=== PATIENT | male | born 1960 | race Caucasian/White ===

== ENCOUNTER 2018-08-24 21:08 | Emergency (ER) | payer SELFPAY ==
--- NOTE | 2018-08-24 21:34 | EDM.PDOC ---
ED HPI GENERAL MEDICAL PROBLEM - General Chief Complaint: General Stated Complaint: LOWER ABDOMINAL PAIN Time Seen by Provider: 08/24/18 21:24 - History of Present Illness INITIAL COMMENTS - FREE TEXT/NARRATIVE: 58-year-old male presents emergency room with a painful right inguinal hernia that is sticking out farther than it ever has. This hernia has been present for many years when the patient lives in [place] he tried to have it fixed several times but nobody would fix it so he 's been told. Today it has been getting worse and more painful however this is as big as he has ever seen it. He denies any nausea or vomiting has significant pain. 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 He is doing well staying off heroin however has not followed up for his atrial fibrillation Treatments SURFACE LOGGING SYSTEMS LOGGER: Reports: Other (see below) Other Treatments SURFACE LOGGING SYSTEMS LOGGER: none Lower Pelvic Pain Score (Numeric/FACES): 10 - Related Data Allergies Allergy/AdvReac Type Severity Reaction Status Date / Time No Known Allergies Allergy Verified 06/27/18 11:26 Home Meds: Home Meds . [No Known Home Meds] 08/24/18 [History] Past Medical History HEENT History: Reports: Impaired Vision Cardiovascular History: Reports: Afib, Hypertension 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 History: Reports: Other (See Below) Other 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 History: slow flow Musculoskeletal History: Reports: Back Pain, Chronic Other Musculoskeletal History: knots in back "feels like a broken rib" Psychiatric History: Reports: Addiction - Infectious Disease History Infectious Disease History: Reports: Hepatitis C - Past Surgical History Head Surgeries/Procedures: Reports: None HEENT Surgical History: Reports: Tonsillectomy Social & Family History - Family History Family Medical History: Noncontributory - Tobacco Use Smoking Status *Q: Current Every Day Smoker Years of Tobacco use: 30 Packs/Tins Daily: 0.2 - Caffeine Use Caffeine Use: Reports: Coffee - Recreational Drug Use Other Recreational Drug Type: last used heroin 2 months ago ED ROS GENERAL - Review of Systems Review Of Systems: See Below Constitutional: Reports: No Symptoms HEENT: Reports: No Symptoms Respiratory: Reports: No Symptoms Cardiovascular: Reports: No Symptoms GI/Abdominal: Reports: Abdominal Pain, Constipation, Diarrhea. Denies: Nausea, Vomiting : Reports: No Symptoms Neurological: Reports: No Symptoms Psychiatric: Reports: No Symptoms ED EXAM, GENERAL - Physical Exam Exam: See Below Exam Limited By: No Limitations General Appearance: Alert, No Apparent Distress Head: Atraumatic, Normocephalic Neck: Normal Inspection, Supple, Non-Tender, Full Range of Motion Respiratory/Chest: No Respiratory Distress, Lungs Clear, Normal Breath Sounds Cardiovascular: Regular Rate, Rhythm, No Edema, No Murmur GI/Abdominal: Normal Bowel Sounds, Soft, Other (Patient is a quite large right inguinal hernia this is larger than has seen at in the past gentle maneuvers try and reduce have not yet been successful. He has contents right down into the right scrotum.) Back Exam: Normal Inspection. No: CVA Tenderness (L), CVA Tenderness (R) Course - Vital Signs Last Recorded V/S: Last Vital Signs Temp 37.0 C 08/24/18 21:23 Pulse 88 08/24/18 21:23 Resp 20 08/24/18 21:23 BP 136/111 H 08/24/18 21:23 Pulse Ox 98 08/24/18 21:23 - Orders/Labs/Meds Orders: Active Orders 24 hr Category Date Time Status Abdomen 2V AP Flat Upright [CR] Stat Exams 08/24/18 21:43 Taken Abdomen Pelvis w Cont [CT] Stat Exams 08/24/18 22:55 Taken Lactated Ringers [Ringers, Lactated] 1,000 ml Med 08/24/18 21:45 Active IV ASDIRECTED Medication Orders Lactated Ringer's (Ringers, Lactated) 1,000 mls @ 150 mls/hr IV ASDIRECTED NATALY Last Admin: 08/24/18 22:08 Dose: 150 mls/hr Labs: Laboratory Tests 08/24/18 08/24/18 08/25/18 Range/Units 21:50 21:50 00:15 WBC 9.96 H (4.23-9.07) K/mm3 RBC 4.66 (4.63-6.08) M/mm3 Hgb 15.3 (13.7-17.5) gm/L Hct 42.8 (40.1-51.0) % MCV 91.8 (79.0-92.2) fl MCH 32.8 H (25.7-32.2) pg MCHC 35.7 H (32.2-35.5) g/dl RDW Std Deviation 45.8 H (35.1-43.9) fL Plt Count 163 (163-337) K/mm3 MPV 10.2 (9.4-12.3) fl Neutrophils % (Manual) 36 L (40-60) % Band Neutrophils % 0 (0-10) % Lymphocytes % (Manual) 58 H (20-40) % Atypical Lymphs % 0 % Monocytes % (Manual) 4 (2-10) % Eosinophils % (Manual) 0 L (0.8-7.0) % Basophils % (Manual) 2 H (0.2-1.2) Platelet Estimate Adequate RBC Morph Comment Normal Sodium 140 (136-145) mEq/L Potassium 3.9 (3.5-5.1) mEq/L Chloride 105 (98-107) mEq/L Carbon Dioxide 28 (21-32) mEq/L Anion Gap 10.9 (5-15) BUN 10 (7-18) mg/dL Creatinine 0.9 (0.7-1.3) mg/dL Est Cr Clr Drug Dosing 89.60 mL/min Estimated GFR (MDRD) > 60 (>60) mL/min BUN/Creatinine Ratio 11.1 L (14-18) Glucose 104 (74-106) mg/dL Calcium 8.7 (8.5-10.1) mg/dL Total Bilirubin 0.5 (0.2-1.0) mg/dL AST 41 H (15-37) U/L ALT 60 (16-63) U/L Alkaline Phosphatase 60 (46-116) U/L Total Protein 7.7 (6.4-8.2) g/dl Albumin 3.3 L (3.4-5.0) g/dl Globulin 4.4 gm/dL Albumin/Globulin Ratio 0.8 L (1-2) Lipase 177 (73-393) U/L Urine Color Yellow (Yellow) Urine Appearance Clear (Clear) Urine pH 5.5 (5.0-8.0) Ur Specific [place] > or = 1.030 (1.005-1.030) Urine Protein Negative (Negative) Urine Glucose (UA) Negative (Negative) Urine Ketones Trace H (Negative) Urine Occult Blood Negative (Negative) Urine Nitrite Negative (Negative) Urine Bilirubin Negative (Negative) Urine Urobilinogen 0.2 (0.2-1.0) Ur Leukocyte Esterase Negative (Negative) Urine RBC 0-5 (0-5) /hpf Urine WBC 0-5 (0-5) /hpf Ur Epithelial Cells 0-5 (0-5) /hpf Urine Bacteria Rare (FEW) /hpf Urine Mucus Moderate H (FEW) /hpf Meds: Medications Generic Name Dose Route Start Last Admin Trade Name Freq PRN Reason Stop Dose Admin Lactated Ringer's 1,000 mls @ 150 mls/hr 08/24/18 21:45 08/24/18 22:08 Ringers, Lactated IV 150 mls/hr ASDIRECTED NATALY Administration Discontinued Medications Generic Name Dose Route Start Last Admin Trade Name Freq PRN Reason Stop Dose Admin Diatrizoate Meglum/Diatrizoate Sod 120 ml 08/25/18 00:12 08/25/18 00:19 Gastrografin 37% PO 08/25/18 00:13 120 ml ONETIME ONE Administration Hydromorphone HCl 0.5 mg 08/24/18 21:39 08/24/18 21:48 Dilaudid IVPUSH 08/24/18 21:40 0.5 mg ONETIME ONE Administration Hydromorphone HCl 0.5 mg 08/24/18 22:52 08/24/18 23:04 Dilaudid IVPUSH 08/24/18 22:53 0.5 mg ONETIME ONE Administration Iopamidol 100 ml 08/25/18 00:12 08/25/18 00:19 Isovue-300 (61%) IVPUSH 08/25/18 00:13 100 ml ONETIME ONE Administration Iopamidol 25 ml 08/25/18 00:12 08/25/18 00:19 Isovue-300 (61%) IVPUSH 08/25/18 00:13 25 ml ONETIME ONE Administration - Re-Assessments/Exams Free Text/Narrative Re-Assessment/Exam: 08/25/18 02:06 Auditory evaluation is not overly concerning KUB and upright showed some not clearly diagnostic however had multiple loops of small bowel are slightly dilated including a fairly large loop of bowel that could well of been in the right scrotum went ahead and follow this up with a CT which shows a very large inguinal hernia containing a portion of the small bowel and colon as well as the appendix however there is no evidence of bowel obstruction. After the results of the CT I discussed the situation with the patient was feeling much better palpation of the hernias much smaller than it was. Discussed the patient' s case with Dr. Murphy who recommends outpatient treatment and will see him early this next week. I discussed this with the patient he agrees with this. Discussed pain management with the patient as he is a recovering heroin addict and he elects not to take anything for pain. Departure - Departure Time of Disposition: 02:08 Disposition: Home, Self-Care 01 Clinical Impression: Right inguinal hernia - Discharge Information Referrals: PCP,None [Primary Care Provider] - Ale Murphy MD [Physician] - Forms: ED Department Discharge Additional Instructions: Return to the emergency room with any questions problems worsening symptoms. Follow-up with general surgery at the [facility], , call first thing Saturday for an appointment. Clear liquid diet for the next 24 hours then slowly advance as tolerated - My Orders Last 24 Hours: My Active Orders 08/24/18 21:43 Abdomen 2V AP Flat Upright [CR] Stat 08/24/18 21:45 Lactated Ringers [Ringers, Lactated] 1,000 ml IV ASDIRECTED 08/24/18 22:55 Abdomen Pelvis w Cont [CT] Stat - Assessment/Plan Last 24 Hours: My Active Orders 08/24/18 21:43 Abdomen 2V AP Flat Upright [CR] Stat 08/24/18 21:45 Lactated Ringers [Ringers, Lactated] 1,000 ml IV ASDIRECTED 08/24/18 22:55 Abdomen Pelvis w Cont [CT] Stat
[2018-08-24] MEDS ORDERED: HYDROmorphone 1 MG/ML Syringe IVPUSH ONE ×2 (21:39→22:52)
[2018-08-24] MEDS ORDERED: Lactated Ringers 1,000 ML IV SCH (21:45)
[2018-08-25] MEDS ORDERED: Iopamidol 612 MG/ML 100 ML Bottle IVPUSH ONE (00:12)
[2018-08-25] MEDS ORDERED: Iopamidol 612 MG/ML 50 ML SDV IVPUSH ONE (00:12)
[2018-08-25] MEDS ORDERED: Diatrizoate Meglumine/Diatrizoate Sodium 37% 120 ML Bottle PO ONE (00:12)
--- NOTE | 2018-08-25 06:38 | CT ---
CT abdomen and pelvis Technique: Multiple axial sections were obtained from above the dome of the diaphragm inferiorly through the pubic symphysis. Intravenous contrast and oral contrast has been given. Findings: Right inguinal hernia is seen which contains the cecum as well as the terminal ileum and appendix. Contrast is seen entering the hernia from the ileum as well as contrast seen more distally within the colon. No complete bowel obstruction is seen at this time. Visualized lung bases show nothing acute. Liver contains no focal abnormality. Contrast is identified within the distal esophagus compatible with gastroesophageal reflux. Adrenal glands show no nodule. Pancreas is within normal limits. Gallbladder contains no calcified gallstones. Kidneys show symmetric contrast enhancement without hydronephrosis or mass. Aorta shows no aneurysm. No retroperitoneal adenopathy or mesenteric abnormalities are seen. No pelvic mass or adenopathy is seen. Delayed images show contrast within the distal ureters and bladder. Bone window settings were reviewed which show degenerative change within the spine most severe at L3-L4 with disc space narrowing, vacuum phenomena and endplate sclerosis. Impression: 1. Large right inguinal hernia containing the cecum as well as terminal ileum and appendix. Contrast is seen within the terminal ileum and cecum as well as more distal contrast within the colon. Hernia does not cause a complete small bowel obstruction but could cause a low-grade partial obstruction. 3. Other incidental findings as noted above. Diagnostic code #3 I agree with preliminary report from [facility], finalized on 08/25/18, 2:46 AM Central Time
--- NOTE | 2018-08-25 06:38 | CR ---
Abdomen: Supine and upright views of the abdomen were obtained. Comparison: Prior abdominal x-ray of 06/26/18. Scoliosis is noted within the spine. Right inguinal hernia is seen containing a loop of bowel most likely colon. This may be causing some obstruction as there is mildly dilated small bowel gas being seen within the right lower abdomen. Nodule noted within the left lung base most likely representing nipple density. No free air is seen. Impression: 1. Bowel within right inguinal hernia most likely colon. This may be causing some obstruction as there is mildly prominent small bowel being seen within the right lower abdomen. 2. Other incidental findings. Diagnostic code #5
== END 2018-08-25 02:16 | disposition home or self-care (01) ==
LOC: JD.ED 21:08
DX: K40.90 Unilateral inguinal hernia, without obstruction or gangrene, not specified as recurrent (principal); I10 Essential (primary) hypertension; I48.91 Unspecified atrial fibrillation; F17.210 Nicotine dependence, cigarettes, uncomplicated; Z98.890 Other specified postprocedural states
CPT/HCPCS: 36415; 74019; 74177; 80053; 81001; 83690; 85007; 85027; 96361; 96374; 96376; 99284; J1170; J7120; Q9963; Q9967

== ENCOUNTER 2018-08-30 13:05 | Emergency (ER) | payer MEDICAID ==
[2018-08-30] MEDS ORDERED: LORazepam 2 MG/ML SDV IVPUSH ONE (13:41)
[2018-08-30] MEDS ORDERED: Sodium Chloride 0.9% 10 ML Syringe FLUSH PRN (13:41)
[2018-08-30] MEDS ORDERED: HYDROmorphone 1 MG/ML Syringe IVPUSH ONE (13:41)
[2018-08-30] MEDS ORDERED: Ondansetron 4 MG/2 ML SDV IVPUSH ONE (13:43)
--- NOTE | 2018-08-30 14:30 | EDM.PDOC ---
ED HPI GENERAL MEDICAL PROBLEM - General Chief Complaint: Gastrointestinal Problem Stated Complaint: HERNIA Time Seen by Provider: 08/30/18 13:29 Source of Information: Reports: Patient, RN Notes Reviewed - History of Present Illness INITIAL COMMENTS - FREE TEXT/NARRATIVE: 58-year-old male comes in with right inguinal hernia, severe abdominal pain, nausea vomiting. Does have history of chronic right inguinal hernia that he is sad for at least several years. He states the swelling pain in the right scrotum became much worse just an hour or 2 ago. He had a similar episode like this 6 days ago. Please refer to that record for details. With pain medicine and time symptoms did get better and he states he has done okay this past week up until just an hour to ago. Resents with nausea and vomiting as well. He states he has pain throughout his abdomen as well. groin Pain Score (Numeric/FACES): 10 - Related Data Allergies Allergy/AdvReac Type Severity Reaction Status Date / Time No Known Allergies Allergy Verified 08/30/18 13:23 Home Meds: Home Meds . [No Known Home Meds] 08/24/18 [History] Past Medical History HEENT History: Reports: Impaired Vision Cardiovascular History: Reports: Afib, Hypertension 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 History: Reports: Other (See Below) Other 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 History: slow flow Musculoskeletal History: Reports: Back Pain, Chronic Other Musculoskeletal History: knots in back "feels like a broken rib" Psychiatric History: Reports: Addiction Other Psychiatric History: hx heroin use/abuse and other substances - Infectious Disease History Infectious Disease History: Reports: Hepatitis C - Past Surgical History Head Surgeries/Procedures: Reports: None HEENT Surgical History: Reports: Tonsillectomy Social & Family History - Family History Family Medical History: Noncontributory - Tobacco Use Smoking Status *Q: Current Every Day Smoker Years of Tobacco use: 40 Packs/Tins Daily: 0.3 - Caffeine Use Caffeine Use: Reports: Coffee - Recreational Drug Use Recreational Drug Use: Yes Drug Use in Last 12 Months: Yes Other Recreational Drug Type: hx of heroin use ED ROS GENERAL - Review of Systems Review Of Systems: See Below Constitutional: Denies: Fever, Chills HEENT: Reports: No Symptoms Respiratory: Denies: Shortness of Breath Cardiovascular: Denies: Chest Pain GI/Abdominal: Reports: Abdominal Pain, Nausea, Vomiting : Reports: Other (Severe swelling right scrotum) Neurological: Reports: No Symptoms ED EXAM, GI/ABD - Physical Exam Exam: See Below General Appearance: Alert, Severe Distress Eyes: Bilateral: Normal Appearance Throat/Mouth: Normal Inspection Head: Atraumatic Respiratory/Chest: No Respiratory Distress, Lungs Clear, Normal Breath Sounds Cardiovascular: Regular Rate, Rhythm GI/Abdominal Exam: Tender (Moderate diffuse tenderness somewhat more on the right) (Male) Exam: Scrotal Swelling (very large R groin and R scrotal mass, tenderness) Extremities: Normal Inspection, Normal Range of Motion Neurological: Alert, No Motor/Sensory Deficits Skin Exam: Warm, Dry, Normal Color Course - Vital Signs Last Recorded V/S: Last Vital Signs Temp 97.1 F 08/30/18 13:12 Pulse 65 08/30/18 13:12 Resp 18 08/30/18 13:12 BP 154/108 H 08/30/18 13:12 Pulse Ox 100 08/30/18 13:12 - Orders/Labs/Meds Orders: Active Orders 24 hr Category Date Time Status Peripheral IV Care [RC] . DIRECTED Care 08/30/18 13:41 Active Abdomen 2V AP Flat Upright [CR] Stat Exams 08/30/18 14:18 Taken Peripheral IV Insertion Adult [OM.PC] Stat Oth 08/30/18 13:40 Ordered Labs: Laboratory Tests 08/30/18 08/30/18 08/30/18 Range/Units 13:50 13:50 13:50 WBC 18.44 H (4.23-9.07) K/mm3 RBC 5.34 (4.63-6.08) M/mm3 Hgb 17.2 (13.7-17.5) gm/L Hct 48.5 (40.1-51.0) % MCV 90.8 (79.0-92.2) fl MCH 32.2 (25.7-32.2) pg MCHC 35.5 (32.2-35.5) g/dl RDW Std Deviation 46.9 H (35.1-43.9) fL Plt Count 206 (163-337) K/mm3 MPV 10.0 (9.4-12.3) fl Neutrophils % (Manual) 47 (40-60) % Band Neutrophils % 0 (0-10) % Lymphocytes % (Manual) 44 H (20-40) % Atypical Lymphs % 0 % Monocytes % (Manual) 9 (2-10) % Eosinophils % (Manual) 0 L (0.8-7.0) % Basophils % (Manual) 0 L (0.2-1.2) Platelet Estimate Adequate Plt Morphology Comment Normal RBC Morph Comment Normal Sodium 136 (136-145) mEq/L Potassium 4.3 (3.5-5.1) mEq/L Chloride 100 (98-107) mEq/L Carbon Dioxide 25 (21-32) mEq/L Anion Gap 15.3 H (5-15) BUN 12 (7-18) mg/dL Creatinine 1.0 (0.7-1.3) mg/dL Est Cr Clr Drug Dosing 83.16 mL/min Estimated GFR (MDRD) > 60 (>60) mL/min BUN/Creatinine Ratio 12.0 L (14-18) Glucose 159 H (74-106) mg/dL Calcium 9.2 (8.5-10.1) mg/dL Total Bilirubin 1.0 (0.2-1.0) mg/dL AST 39 H (15-37) U/L ALT 74 H (16-63) U/L Alkaline Phosphatase 69 (46-116) U/L C-Reactive Protein < 0.2 (<1.0) mg/dL Total Protein 8.6 H (6.4-8.2) g/dl Albumin 3.8 (3.4-5.0) g/dl Globulin 4.8 gm/dL Albumin/Globulin Ratio 0.8 L (1-2) Meds: Medications Discontinued Medications Generic Name Dose Route Start Last Admin Trade Name [place] PRN Reason Stop Dose Admin Hydromorphone HCl 1 mg 08/30/18 13:41 08/30/18 13:53 Dilaudid IVPUSH 08/30/18 13:42 1 mg ONETIME ONE Administration Lorazepam 0.5 mg 08/30/18 13:41 08/30/18 13:54 Ativan IVPUSH 08/30/18 13:42 0.5 mg ONETIME ONE Administration Ondansetron HCl 4 mg 08/30/18 13:43 08/30/18 13:53 Zofran IVPUSH 08/30/18 13:44 4 mg ONETIME ONE Administration Sodium Chloride 10 ml 08/30/18 13:41 08/30/18 13:54 Saline Flush FLUSH 10 ml ASDIRECTED PRN Administration Keep Vein Open - Re-Assessments/Exams Free Text/Narrative Re-Assessment/Exam: 08/30/18 16:24 Patient was medicated initially with Dilaudid 1 mg IV, Ativan 0.5 mg IV. Helped his pain tremendously. Gentle pressure was applied to the area of mass in herniation of the right scrotum for considerable time which did help partially reduce the mass and swelling of the scrotum did not take it out completely. We then did do a flat and upright abdomen which did show a couple of small air- fluid levels right abdomen somewhat similar to x-rays obtained 6 days ago. He then did go back applied further pressure in herniation didn't completely reduce it down at least for now. I did have our nurse then apply some gauze to the area of his hernia and an Silverio wrap to at least get some pressure over that area which may help that from recurring over the next few days. He does have appointment to see Dr. Ramsey, General Surgeon, [facility] 2 days from now. Departure - Departure Time of Disposition: 15:50 Disposition: Home, Self-Care 01 Condition: Fair Clinical Impression: Inguinal hernia Qualifiers: Obstruction and gangrene presence: without obstruction or gangrene Laterality: unilateral Recurrence: not specified as recurrent Qualified Code(s): K40.90 - Unilateral inguinal hernia, without obstruction or gangrene, not specified as recurrent - Discharge Information Instructions: Inguinal Hernia, Adult, [id number] Referrals: PCP,None [Primary Care Provider] - Forms: ED Department Discharge Additional Instructions: Start taking stool softener as planned, drink plenty of water to maintain hydration, high-fiber diet, Silverio wrap with gauze to apply pressure to area of hernia to try help keep that from reoccurring. No lifting. See Dr. Ramsey Saturday at [facility] as planned, return to ED if symptoms worsening in any way. - My Orders Last 24 Hours: My Active Orders 08/30/18 13:40 Peripheral IV Insertion Adult [OM.PC] Stat 08/30/18 13:41 Peripheral IV Care [RC] . DIRECTED 08/30/18 14:18 Abdomen 2V AP Flat Upright [CR] Stat - Assessment/Plan Last 24 Hours: My Active Orders 08/30/18 13:40 Peripheral IV Insertion Adult [OM.PC] Stat 08/30/18 13:41 Peripheral IV Care [RC] . DIRECTED 08/30/18 14:18 Abdomen 2V AP Flat Upright [CR] Stat
--- NOTE | 2018-08-31 17:00 | CR ---
Abdomen: Supine and upright views of the abdomen were obtained. Comparison: Prior CT abdomen and pelvis exam of 08/25/18. Slightly dilated air filled small bowel loops are seen containing air-fluid levels. Findings are compatible with mild small bowel obstruction. No free air is seen. Scoliosis and degenerative change are noted within the spine. Minimal vascular calcification is seen. Impression: 1. Findings suspicious for mild small bowel obstruction. 2. Other incidental findings. Diagnostic code #3
== END 2018-08-30 15:58 | disposition home or self-care (01) ==
LOC: JD.ED 13:05
DX: K40.90 Unilateral inguinal hernia, without obstruction or gangrene, not specified as recurrent (principal); I10 Essential (primary) hypertension; F17.210 Nicotine dependence, cigarettes, uncomplicated
CPT/HCPCS: 36415; 74019; 80053; 85007; 85027; 86140; 96374; 96375; 99284; J1170; J2060; J2405

== ENCOUNTER 2018-12-17 07:32 | Day surgery (SDC) | payer MEDICAID ==
[~2018-12-17 07:32] MED LIST: Lactated Ringers 1,000 ML IV SCH; Lidocaine 1%/Sod Bicarbonate in NS 8.4% 1 ML Syringe IDERM PRN; Sodium Chloride 0.9% 10 ML Syringe FLUSH PRN
[2018-12-17] MEDS ORDERED: Lidocaine 1% 4 ML ONE (07:45)
[2018-12-17] MEDS ORDERED: Ondansetron 4 MG/2 ML SDV ONE (07:45)
[2018-12-17] MEDS ORDERED: Rocuronium 50 MG/5 ML Vial ONE (07:45)
[2018-12-17] MEDS ORDERED: fentaNYL 250 MCG/5 ML SDV ONE (07:46)
[2018-12-17] MEDS ORDERED: Midazolam 1 MG/ML 2 ML SDV ONE (07:46)
[2018-12-17] MEDS ORDERED: Propofol 200 MG/20 ML SDV ONE (07:46)
[2018-12-17] MEDS ORDERED: ceFAZolin 1 GM Vial ONE (07:51)
--- NOTE | 2018-12-17 08:00 | PCM.PREANE ---
Preanesthetic Assessment - Procedure Proposed Procedure: open inguinal hernia repair with mesh - Anesthesia/Transfusion/Family Hx Anesthesia History: Prior Anesthesia Without Reaction Family History of Anesthesia Reaction: No Transfusion History: No Prior Transfusion(s) - Review of Systems General: No Symptoms Pulmonary: Cough (getting over a cold) Cardiovascular: No Symptoms Gastrointestinal: Abdominal Pain (because of hernia) Neurological: No Symptoms Other: Reports: Liver Problems (hep c) - Physical Assessment NPO Status Date: 12/16/18 NPO Status Time: 23:00 Pulse: 88 O2 Sat by Pulse Oximetry: 96 Respiratory Rate: 18 Blood Pressure: 138/87 Temperature: 98.1 F Height: 5 ft 6 in Weight: 74.8 kg ASA Class: 2 Mental Status: Alert & Oriented x3 Airway Class: Mallampati = 1 Dentition: Reports: Missing Tooth/Teeth (only has 1 tooth bottom) Thyro-Mental Finger Breadths: 3 Mouth Opening Finger Breadths: 3 ROM/Head Extension: Full Lungs: Clear to Auscultation, Normal Respiratory Effort Cardiovascular: Regular Rate, Regular Rhythm - Lab Values: Laboratory Last Values MRSA (PCR) Negative 12/12/18 09:48 - Allergies Allergies/Adverse Reactions: Allergies Allergy/AdvReac Type Severity Reaction Status Date / Time No Known Allergies Allergy Verified 12/16/18 12:16 - Blood Blood Available: No - Acknowledgements Anesthesia Type Planned: General Anesthesia Pt an Appropriate Candidate for the Planned Anesthesia: Yes Alternatives and Risks of Anesthesia Discussed w Pt/Guardian: Yes Pt/Guardian Understands and Agrees with Anesthesia Plan: Yes PreAnesthesia Questionnaire HEENT History: Reports: None Cardiovascular History: Reports: Afib, Hypertension Respiratory History: Reports: None Gastrointestinal History: Reports: Other (See Below) Other Gastrointestinal History: Inguinal hernia 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 History: Reports: None Other 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 History: slow flow Musculoskeletal History: Reports: None Other Musculoskeletal History: knots in back "feels like a broken rib" Neurological History: Reports: None Psychiatric History: Reports: Addiction Other Psychiatric History: H&P states substance abuse but patient denies- last used marijuana 4 months ago Endocrine/Metabolic History: Reports: None Hematologic History: Reports: None Immunologic History: Other Immunologic History: H&P states Hepatitis C, but patient states he has never been tested for it Oncologic (Cancer) History: Reports: None Dermatologic History: Reports: None - Infectious Disease History Infectious Disease History: Reports: Hepatitis C Other Infectious Disease History: H&P states Hepatitis C, however, patient states that he has never been tested for it. - Past Surgical History Head Surgeries/Procedures: Reports: None HEENT Surgical History: Reports: Tonsillectomy Cardiovascular Surgical History: Reports: None GI Surgical History: Reports: None Female Surgical History: Male Surgical History: Reports: None Endocrine Surgical History: Reports: None Neurological Surgical History: Reports: None Musculoskeletal Surgical History: Reports: None Oncologic Surgical History: Reports: None Dermatological Surgical History: Reports: None - SUBSTANCE USE Smoking Status *Q: Current Every Day Smoker Tobacco Use Within Last Twelve Months: Cigarettes Second Hand Smoke Exposure: Yes Days Per Week of Alcohol Use: 2 Number of Drinks Per Day: 2 Total Drinks Per Week: 4 Recreational Drug Use History: Yes Recreational Drug Type: Reports: Heroin, Marijuana/Hashish, Methamphetamine - HOME MEDS Home Medications: Home Meds Aspirin [Halfprin] 81 mg PO DAILY 12/16/18 [History] Multivitamin/Iron/Folic Acid [Centrum Complete Multivit] 1 tab PO DAILY [History] - CURRENT (IN HOUSE) MEDS Current Meds: Current Medications Lactated Ringer's (Ringers, Lactated) 1,000 mls @ 125 mls/hr IV ASDIRECTED NATALY Stop: 12/17/18 23:00 Lidocaine/Sodium Bicarbonate (Buffered Lidocaine 1% In Ns 8.4%) 0.25 ml IDERM ONETIME PRN PRN Reason: Prior to IV Start Stop: 12/17/18 18:00 Sodium Chloride (Saline Flush) 10 ml FLUSH ASDIRECTED PRN PRN Reason: Keep Vein Open Stop: 12/17/18 18:00 Discontinued Medications Cefazolin Sodium (Ancef) Confirm Administered Dose 2 gm .ROUTE .STK-MED ONE Stop: 12/17/18 07:52 Fentanyl (Sublimaze) Confirm Administered Dose 250 mcg .ROUTE .STK-MED ONE Stop: 12/17/18 07:47 Lidocaine HCl (Xylocaine-Mpf 1%) Confirm Administered Dose 4 mls @ as directed .ROUTE .STK-MED ONE Stop: 12/17/18 07:46 Midazolam HCl (Versed 1 Mg/Ml) Confirm Administered Dose 2 mg .ROUTE .STK-MED ONE Stop: 12/17/18 07:47 Ondansetron HCl (Zofran) Confirm Administered Dose 4 mg .ROUTE .STK-MED ONE Stop: 12/17/18 07:46 Propofol (Diprivan 20 Ml) Confirm Administered Dose 200 mg .ROUTE .STK-MED ONE Stop: 12/17/18 07:47 Rocuronium [place] (Zemuron) Confirm Administered Dose 50 mg .ROUTE .STK-MED ONE Stop: 12/17/18 07:46
[2018-12-17] MEDS ORDERED: fentaNYL 100 MCG/2 ML SDV IVPUSH PRN (08:34)
[2018-12-17] MEDS ORDERED: HYDROmorphone 0.5 MG/0.5 ML Syringe IVPUSH PRN (08:34)
[2018-12-17] MEDS ORDERED: Ondansetron 4 MG/2 ML SDV IVPUSH PRN (08:34)
[2018-12-17] MEDS ORDERED: ePHEDrine/Normal Saline 25 MG/5 ML Syringe ONE (08:46)
[2018-12-17] MEDS: Bupivacaine 0.25% 30 ML SDV ONE ×2 (08:50→09:34)
[2018-12-17] MEDS ORDERED: Lactated Ringers 1,000 ML ONE (09:30)
[2018-12-17] MEDS ORDERED: Neostigmine Methylsulfate 1 MG/ML 5 ML Syringe ONE (09:31)
[2018-12-17] MEDS ORDERED: Glycopyrrolate 0.2 MG/ML SDV ONE (09:31)
[2018-12-17] MEDS ORDERED: Morphine 2 MG/ML Syringe IVPUSH PRN (09:48)
[2018-12-17] MEDS ORDERED: Sodium Chloride 0.9% 10 ML Syringe FLUSH PRN (09:50)
--- NOTE | 2018-12-17 09:53 | PCM.POSTAN ---
POST ANESTHESIA ASSESSMENT - MENTAL STATUS Mental Status: Alert, Oriented - VITAL SIGNS Pulse Rate: 106 SaO2: 98 Resp Rate: 20 Blood Pressure: 142/90 Temperature: 99.6 F - RESPIRATORY Respiratory Status: Respiratory Rate WNL, Airway Patent, O2 Saturation Stable, Supplemental Oxygen - CARDIOVASCULAR CV Status: Pulse Rate WNL, Blood Pressure Stable - GASTROINTESTINAL GI Status: No Symptoms - PAIN Pain Score: 0 - POST OP HYDRATION Hydration Status: Adequate & Stable
[2018-12-17] MEDS: Acetaminophen/oxyCODONE 325-5 MG Tab PO PRN ×3 (12:23→21:56)
--- NOTE | 2018-12-17 13:47 | OR ---
DATE OF OPERATION: 12/17/2018 SURGEON: Drew Galloway MD PREOPERATIVE DIAGNOSIS: Right inguinal hernia. POSTOPERATIVE DIAGNOSIS: Right inguinal hernia. OPERATION PERFORMED: Open repair of right inguinal hernia with mesh. ANESTHESIA: General. ESTIMATED BLOOD LOSS: Minimal. SPECIMEN: Hernia sac. INDICATION FOR PROCEDURE: This 58-year-old male has a large right inguinal hernia. This extends down into the scrotum. It is reducible in the supine position, but is moderately symptomatic. DESCRIPTION OF PROCEDURE: After adequate preparation, a right lower quadrant incision was made over the hernia area and carried down to the external abdominal oblique. The external oblique was then opened to expose the inguinal canal and the hernia contents. The hernia was able to be reduced; however, it was very difficult to separate the hernia sac from the spermatic cord. This appeared to be an indirect inguinal hernia and in manipulating the hernia, it necessitated bringing the testicle up out of the scrotum. I was able to dissect the sac free from the cord structures down to the deep inguinal ring. The hernia sac was opened to inspect and make sure there were no intra-sac contents. The hernia sac was then closed from the inside using a running pursestring of a 2-0 Prolene suture. The floor of the inguinal canal was then reinforced using mesh. This was sewn in place in a running fashion along the inguinal ligament and intermittent stitches underneath the external oblique up on the rectus sheath. A keyhole had been made to allow the cord structures to come through the mesh and then the tails of the Prolene mesh were sewn laterally. This appeared to be a nice fixture of the inguinal floor. The testicle was replaced back down in the hernia sac. The wound was closed using a 0 Vicryl for the external oblique and the Maurilio fascia and Monocryl for the skin. Local anesthesia was then injected in the skin. MMODAL /[id number]
[2018-12-18] MEDS: Acetaminophen/oxyCODONE 325-5 MG Tab PO PRN ×2 (03:16→08:57)
--- NOTE | 2018-12-18 07:41 | PCM48HPAN ---
Post Anesthesia Note - EVALUATION WITHIN 48HRS OF ANESTHETIC Vital Signs in Normal Range: Yes Patient Participated in Evaluation: Yes Respiratory Function Stable: Yes Airway Patent: Yes Cardiovascular Function Stable: Yes Hydration Status Stable: Yes Pain Control Satisfactory: Yes Nausea and Vomiting Control Satisfactory: Yes Mental Status Recovered: Yes Pulse Rate: 84 Resp Rate: 16 Temperature: 37.8 C Blood Pressure: 114/75 - COMMENTS/OBSERVATIONS Free Text/Narrative:: no anesthesia complications noted
--- NOTE | 2018-12-18 09:49 | PCM.SN ---
- Free Text/Narrative Note: Stable POD#! from [facility]. Moderate groin and scrotal swelling which is not unexpected secondary to the size of the hernia repaired. Wound clean and dry. Pain controlled. PO liquids tolerated well. No restrictions on activity or diet. Percocet (#30) given for pain. No FU needed unless he has questions about the healing. Can DC today.
== END 2018-12-18 11:45 | disposition home or self-care (01) ==
LOC: JD.SDS 07:32 → JD.MS 11:19 → JD.SDS 12-18 11:45
PROVIDERS: ATTEND Surgery
DX: K40.90 Unilateral inguinal hernia, without obstruction or gangrene, not specified as recurrent (principal); I10 Essential (primary) hypertension; F17.210 Nicotine dependence, cigarettes, uncomplicated; I48.91 Unspecified atrial fibrillation; Z79.82 Long term (current) use of aspirin
CPT/HCPCS: 49505; 87641; A9270; C1781; J0690; J2001; J2250; J2405; J2704; J2710; J3010; J3490; J7050; J7120; 00830

== ENCOUNTER 2019-01-30 10:17 | Emergency (ER) | payer MEDICAID ==
[2019-01-30] MEDS ORDERED: Acetaminophen/HYDROcodone 325-5 MG Tab PO ONE (10:45)
--- NOTE | 2019-01-30 12:22 | US ---
Testicular ultrasound: Multiple real-time images of the testicles were obtained. Testicles have a homogeneous ultrasound appearance. No intratesticular abnormality is identified. Complex fluid is seen superiorly within the scrotal sac raising the possibility of blood/hematoma. This finding measures around 11.5 x 8.1 x 6.9 cm. Questionable small amount of bowel seen within the right inguinal region. Small epididymal cyst is noted on the left side measuring 7 mm. Measurements: Right testicle: 4.2 x 2.7 x 2.1 cm Left testicle: 4.0 x 3.0 x 1.9 cm Impression: 1. Complex fluid within the superior scrotal sac. Findings presumably represent blood/hematoma. Measurements as noted above. 2. Questionable small amount of bowel within the right inguinal region. Difficult to exclude partial inguinal hernia. 3. Incidental epididymal cyst on the left side. Diagnostic code #3
--- NOTE | 2019-01-30 13:40 | EDM.PDOC ---
ED HPI GENERAL MEDICAL PROBLEM - General Chief Complaint: Abdominal Pain Stated Complaint: PAIN FROM HERNIA SURGERY WHILE COUGHING Time Seen by Provider: 01/30/19 10:30 Source of Information: Reports: Patient History Limitations: Reports: No Limitations - History of Present Illness INITIAL COMMENTS - FREE TEXT/NARRATIVE: The patient presents with right groin pain. He had inguinal hernia repair on December 17. He had some swelling after and it has gotten worse. He has sever swelling to his right scrotum and inguinal area. He says coughing makes it worse. He has no fever, chills, chest pain, abdominal pain, nausea or vomiting. He is still having bowel movements. 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 Right Lower Abdomen Pain Score (Numeric/FACES): 6 - Related Data Allergies Allergy/AdvReac Type Severity Reaction Status Date / Time No Known Allergies Allergy Verified 01/30/19 10:28 Home Meds: Home Meds Aspirin [Halfprin] 81 mg PO DAILY 12/16/18 [History] Multivitamin/Iron/Folic Acid [Centrum Complete Multivit] 1 tab PO DAILY [History] Hydrocodone/Acetaminophen [Hydrocodon-Acetaminophen 5-325] 1 - 2 each PO Q6HR PRN #20 tablet 01/30/19 [Rx] Past Medical History HEENT History: Reports: None Cardiovascular History: Reports: Afib, Hypertension Respiratory History: Reports: None Gastrointestinal History: Reports: Other (See Below) Other Gastrointestinal History: Inguinal hernia 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 History: Reports: Other (See Below) Other 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 History: slow flow Musculoskeletal History: Reports: None Other Musculoskeletal History: knots in back "feels like a broken rib" Neurological History: Reports: None Psychiatric History: Reports: Addiction Other Psychiatric History: H&P states substance abuse but patient denies- last used marijuana 4 months ago Endocrine/Metabolic History: Reports: None Hematologic History: Reports: None Immunologic History: Reports: Other (See Below) Other Immunologic History: H&P states Hepatitis C, but patient states he has never been tested for it Oncologic (Cancer) History: Reports: None Dermatologic History: Reports: None - Infectious Disease History Infectious Disease History: Reports: Hepatitis C Other Infectious Disease History: H&P states Hepatitis C, however, patient states that he has never been tested for it. - Past Surgical History Head Surgeries/Procedures: Reports: None HEENT Surgical History: Reports: Tonsillectomy Cardiovascular Surgical History: Reports: None GI Surgical History: Reports: Hernia, Inguinal Male Surgical History: Reports: None Endocrine Surgical History: Reports: None Neurological Surgical History: Reports: None Musculoskeletal Surgical History: Reports: None Oncologic Surgical History: Reports: None Dermatological Surgical History: Reports: None Social & Family History - Family History Family Medical History: Noncontributory - Tobacco Use Smoking Status *Q: Current Every Day Smoker Years of Tobacco use: 35 Packs/Tins Daily: 0.3 Used Tobacco, but Quit: No - Caffeine Use Caffeine Use: Reports: Coffee - Recreational Drug Use Recreational Drug Use: No ED ROS GENERAL - Review of Systems Review Of Systems: See Below Constitutional: Reports: No Symptoms HEENT: Reports: No Symptoms Respiratory: Reports: No Symptoms Cardiovascular: Reports: No Symptoms Endocrine: Reports: No Symptoms GI/Abdominal: Reports: No Symptoms : Reports: Other (Right groin pain) ED EXAM, GI/ABD - Physical Exam Exam: See Below Exam Limited By: No Limitations General Appearance: Alert, No Apparent Distress Ears: Normal External Exam Nose: Normal Inspection Head: Atraumatic, Normocephalic Neck: Normal Inspection Respiratory/Chest: No Respiratory Distress, Lungs Clear, Normal Breath Sounds Cardiovascular: Regular Rate, Rhythm, No Edema, No Murmur GI/Abdominal Exam: Soft, Non-Tender, No Organomegaly, No Mass (Male) Exam: Other (Right inguinal edema extending to the right scrotum) Course - Vital Signs Last Recorded V/S: Last Vital Signs Temp 97.3 F 01/30/19 10:24 Pulse 55 L 01/30/19 10:24 Resp 20 01/30/19 10:24 BP 138/96 H 01/30/19 10:24 Pulse Ox 100 01/30/19 10:24 - Orders/Labs/Meds Labs: Laboratory Tests 01/30/19 01/30/19 Range/Units 11:00 11:00 WBC 12.42 H (4.23-9.07) K/mm3 RBC 4.75 (4.63-6.08) M/mm3 Hgb 15.3 D (13.7-17.5) gm/L Hct 43.8 (40.1-51.0) % MCV 92.2 (79.0-92.2) fl MCH 32.2 (25.7-32.2) pg MCHC 34.9 (32.2-35.5) g/dl RDW Std Deviation 44.4 H (35.1-43.9) fL Plt Count 235 (163-337) K/mm3 MPV 10.1 (9.4-12.3) fl Sodium 138 (136-145) mEq/L Potassium 4.7 (3.5-5.1) mEq/L Chloride 103 (98-107) mEq/L Carbon Dioxide 26 (21-32) mEq/L Anion Gap 13.7 (5-15) BUN 11 (7-18) mg/dL Creatinine 0.9 (0.7-1.3) mg/dL Est Cr Clr Drug Dosing 90.12 mL/min Estimated GFR (MDRD) > 60 (>60) mL/min BUN/Creatinine Ratio 12.2 L (14-18) Glucose 97 (74-106) mg/dL Calcium 9.5 (8.5-10.1) mg/dL Total Bilirubin 0.8 (0.2-1.0) mg/dL AST 31 (15-37) U/L ALT 44 (16-63) U/L Alkaline Phosphatase 75 (46-116) U/L Total Protein 8.5 H (6.4-8.2) g/dl Albumin 3.7 (3.4-5.0) g/dl Globulin 4.8 gm/dL Albumin/Globulin Ratio 0.8 L (1-2) Meds: Medications Discontinued Medications Generic Name Dose Route Start Last Admin Trade Name Freq PRN Reason Stop Dose Admin Hydrocodone Bitart/Acetaminophen 2 tab 01/30/19 10:45 01/30/19 11:01 Mclaughlin 325-5 Mg PO 01/30/19 10:46 2 tab ONETIME ONE Administration - Re-Assessments/Exams Free Text/Narrative Re-Assessment/Exam: 01/30/19 13:37 I ordered labs and an US of his scrotum. His WBC was slightly elevated at 12.42. His CMP looks good. His US shows complex fluid within the superior scrotal sac. Findings presumably represent blood/hematoma. Measurements are 11.5 X 8.1 X 6.9cm. Questionable small amount of bowel within the right inguinal region. Difficult to exclude partial inguinal hernia. Incidental epididymal cyst on the left side. I called Dr Coburn and he came to see the patient. He will take him to the OR on Saturday. I will give him something for the pain. Departure - Departure Time of Disposition: 13:45 Disposition: Home, Self-Care 01 Condition: Good Clinical Impression: Postoperative hematoma involving genitourinary system following genitourinary procedure - Discharge Information *PRESCRIPTION DRUG MONITORING PROGRAM REVIEWED*: No *COPY OF PRESCRIPTION DRUG MONITORING REPORT IN PATIENT TORRES: No Prescriptions: Hydrocodone/Acetaminophen [Hydrocodon-Acetaminophen 5-325] 1 - 2 each PO Q6HR PRN #20 tablet PRN Reason: Pain Referrals: Miguel Angel Stout MD [Primary Care Provider] - Additional Instructions: Take the hydrocodone for pain. Follow up with Dr Garcia as planned on Saturday. Please return if you are worse.
--- NOTE | 2019-02-03 08:48 | CONS ---
CONSULTING PHYSICIAN: Gurdeep Coburn MD DATE OF CONSULTATION: 01/30/2019 HISTORY OF PRESENT ILLNESS: This is a 58-year-old who presents to the emergency room with pain in the inguinoscrotal area. The patient states that he had an inguinal hernia repair by Dr. Galloway on December 17 with mesh, open repair. He further gives a history of having pain and swelling and bruising in that area with the scrotal quite large. I states it gradually decreased in size, but the discomfort and pain persisted. The patient did go in the meantime to [place], rolled around on the beach with a moped and developed a cough, and every time he coughs, it hurts in that area. He did state that Dr. Galloway said that sometimes the hematoma that forms does not completely resolve. The patient has had an ultrasound which demonstrated a large hematoma, described complex fluid within the superior scrotal sac, presumably hematoma, measuring 11 x 8 x 6 cm. The testicle was normal and was unable to really indicate whether there was a recurrent hernia. The patient has a history of smoking, chronic cough, history of hepatitis C, and a history of atrial fibrillation. The patient is on aspirin 81 mg. Does not take any blood thinners and takes a multivitamin. Drug use not known. Denies any chest pain, shortness of breath, cough, hoarseness, wheezing, fainting, weakness, numbness, convulsions, nausea, vomiting, indigestion, swelling of the legs, chest pain. PHYSICAL EXAMINATION: GENERAL: Reveals an alert, cooperative male. VITAL SIGNS: Temperature 97, pulse 55, and blood pressure 138/96. EYES: Sclerae white. Extraocular muscle motion normal. Oral cavity, healthy mucous membrane with mouth and tongue. NECK: Supple. No nodes. No thyromegaly. LUNGS: Distant breath sounds. HEART: Heart tones regular rate. ABDOMEN: Soft. No tenderness, guarding, or rebound. EXTREMITIES: Upper and lower extremities, no angulation deformities. NEUROLOGIC: Cranial nerves 3 through 12 are intact. No deformities in the upper or lower extremities. SKIN: Warm and dry and multiple tattoos. ASSESSMENT: 1. Hematoma, 6 weeks status post right inguinal hernia repair. 2. Tobacco use. 3. Hepatitis C. PLAN: For drainage of inguinoscrotal hernia. Discussed this with the patient. Risk of infection and chronic draining wound. Understanding and consent. MMODAL /[id number]
== END 2019-01-30 13:50 | disposition home or self-care (01) ==
LOC: JD.ED 10:17
DX: N99.840 Postprocedural hematoma of a genitourinary system organ or structure following a genitourinary system procedure (principal); F17.210 Nicotine dependence, cigarettes, uncomplicated; I10 Essential (primary) hypertension; I48.91 Unspecified atrial fibrillation; Z79.82 Long term (current) use of aspirin; Z98.890 Other specified postprocedural states
CPT/HCPCS: 36415; 76870; 80053; 85027; 93975; 99284; A9270; 99283

== ENCOUNTER 2019-02-03 08:31 | Day surgery (SDC) | payer MEDICAID ==
[2019-02-03] MEDS ORDERED: Bupivacaine 0.5%/EPINEPHrine 1:200,000 50 ML MDV ONE (09:15)
[2019-02-03] MEDS ORDERED: Lidocaine 1% with EPINEPHrine 1:100,000 20 ML MDV ONE (09:15)
[2019-02-03] MEDS ORDERED: Lidocaine 1% 30 ML SDV ONE (09:45)
[2019-02-03] MEDS ORDERED: Bupivacaine 0.5% 30 ML SDV ONE (09:45)
--- NOTE | 2019-02-03 09:52 | PCM.PREANE ---
Preanesthetic Assessment - Anesthesia/Transfusion/Family Hx Anesthesia History: Prior Anesthesia Without Reaction Family History of Anesthesia Reaction: No Transfusion History: No Prior Transfusion(s) Intubation History: Unknown - Review of Systems General: No Symptoms Pulmonary: Wheezing Cardiovascular: No Symptoms, Other Gastrointestinal: No Symptoms Neurological: No Symptoms Other: Reports: None - Physical Assessment NPO Status Date: 02/02/19 NPO Status Time: 22:00 O2 Sat by Pulse Oximetry: 98 Respiratory Rate: 16 Vital Signs: Last Vital Signs Temp 36.7 C 02/03/19 08:35 Pulse 88 02/03/19 08:35 Resp 16 02/03/19 08:35 BP 140/99 H 02/03/19 08:35 Pulse Ox 98 02/03/19 08:35 Height: 1.78 m Weight: 72.575 kg ASA Class: 3 Mental Status: Alert & Oriented x3 Airway Class: Mallampati = 2 Dentition: Reports: Missing Tooth/Teeth ROM/Head Extension: Full Lungs: Rales Cardiovascular: Irregular Rhythm, Other - Allergies Allergies/Adverse Reactions: Allergies Allergy/AdvReac Type Severity Reaction Status Date / Time No Known Allergies Allergy Verified 02/02/19 13:39 - Blood Blood Available: No Product(s) Available: None - Anesthesia Plan Pre-Op Medication Ordered: None - Acknowledgements Anesthesia Type Planned: General Anesthesia Pt an Appropriate Candidate for the Planned Anesthesia: Yes Alternatives and Risks of Anesthesia Discussed w Pt/Guardian: Yes Pt/Guardian Understands and Agrees with Anesthesia Plan: Yes Additional Comments: alcohol abuse- tobacco abuse- hepatitis C- poor teeth dentition PreAnesthesia Questionnaire HEENT History: Reports: None Cardiovascular History: Reports: Afib, Hypertension Respiratory History: Reports: None Gastrointestinal History: Reports: Other (See Below) Other Gastrointestinal History: Inguinal hernia 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 History: Reports: Other (See Below) Other 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 History: slow flow 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 Musculoskeletal History: Other Musculoskeletal History: knots in back "feels like a broken rib" Neurological History: Reports: None Psychiatric History: Reports: Addiction Other Psychiatric History: H&P states substance abuse but patient denies- last used marijuana 4 months ago Endocrine/Metabolic History: Reports: None Hematologic History: Reports: None Immunologic History: Reports: Other (See Below) Other Immunologic History: H&P states Hepatitis C, but patient states he has never been tested for it Oncologic (Cancer) History: Reports: None Dermatologic History: Reports: None - Infectious Disease History Infectious Disease History: Reports: Hepatitis C Other Infectious Disease History: H&P states Hepatitis C, however, patient states that he has never been tested for it. - Past Surgical History Head Surgeries/Procedures: Reports: None HEENT Surgical History: Reports: Tonsillectomy Cardiovascular Surgical History: Reports: None Respiratory Surgical History: Reports: None GI Surgical History: Reports: Hernia, Inguinal Male Surgical History: Reports: None Endocrine Surgical History: Reports: None Neurological Surgical History: Reports: None Musculoskeletal Surgical History: Reports: None Oncologic Surgical History: Reports: None Dermatological Surgical History: Reports: None - SUBSTANCE USE Smoking Status *Q: Current Every Day Smoker Recreational Drug Use History: No - HOME MEDS Home Medications: Home Meds Aspirin [Halfprin] 81 mg PO DAILY 12/16/18 [History] Multivitamin/Iron/Folic Acid [Centrum Complete Multivit] 1 tab PO DAILY [History] Hydrocodone/Acetaminophen [Hydrocodon-Acetaminophen 5-325] 1 - 2 each PO Q6HR PRN #20 tablet 01/30/19 [Rx] - CURRENT (IN HOUSE) MEDS Current Meds: Current Medications Lactated Ringer's (Ringers, Lactated) 1,000 mls @ 125 mls/hr IV ASDIRECTED NATALY Stop: 02/03/19 23:00 Last Admin: 02/03/19 08:50 Dose: 125 mls/hr Lidocaine/Sodium Bicarbonate (Buffered Lidocaine 1% In Ns 8.4%) 0.25 ml IDERM ONETIME PRN PRN Reason: Prior to IV Start Stop: 02/03/19 16:00 Last Admin: 02/03/19 08:50 Dose: 0.25 ml Sodium Chloride (Saline Flush) 10 ml FLUSH ASDIRECTED PRN PRN Reason: Keep Vein Open Stop: 02/03/19 16:00 Discontinued Medications Bupivacaine HCl (Marcaine 0.5%) Confirm Administered Dose 30 ml .ROUTE .STK-MED ONE Stop: 02/03/19 09:46 Bupivacaine HCl/Epinephrine Bitart (Marcaine 0.5%/Epinephrine 1:200,000) Confirm Administered Dose 50 ml .ROUTE .STK-MED ONE Stop: 02/03/19 09:16 Lidocaine HCl (Xylocaine-Mpf 1%) Confirm Administered Dose 30 ml .ROUTE .STK- MED ONE Stop: 02/03/19 09:46 Lidocaine/Epinephrine (Xylocaine 1% With Epinephrine 1:100,000) Confirm Administered Dose 20 ml .ROUTE .STK-MED ONE Stop: 02/03/19 09:16
[2019-02-03] MEDS ORDERED: Propofol 200 MG/20 ML SDV ONE (09:58)
[2019-02-03] MEDS ORDERED: Midazolam 1 MG/ML 2 ML SDV ONE (09:59)
[2019-02-03] MEDS ORDERED: fentaNYL 100 MCG/2 ML SDV ONE (09:59)
[2019-02-03] MEDS ORDERED: ceFAZolin 1 GM Vial ONE ×2 (10:06)
[2019-02-03] MEDS ORDERED: Ondansetron 4 MG/2 ML SDV ONE (10:13)
[2019-02-03] MEDS ORDERED: Ketorolac 30 MG/ML SDV ONE (10:13)
[2019-02-03] MEDS ORDERED: Lactated Ringers 1,000 ML ONE (10:16)
[2019-02-03] MEDS ORDERED: HYDROmorphone 0.5 MG/0.5 ML Syringe ONE ×2 (10:25→10:26)
--- NOTE | 2019-02-03 11:00 | PCM.OPNOTE ---
- General Post-Op/Procedure Note Date of Surgery/Procedure: 02/03/19 Operative Procedure(s): evacuation of hemotoma rt testicle and excsion of hematoma sac Pre Op Diagnosis: hematoma of the rt scrotum Post-Op Diagnosis: Same Anesthesia Technique: General ET Tube Primary Surgeon: Gurdeep Coburn EBL in mLs: 20 Complications: None Condition: Good
--- NOTE | 2019-02-03 11:20 | PCM.POSTAN ---
POST ANESTHESIA ASSESSMENT - MENTAL STATUS Mental Status: Alert - RESPIRATORY Respiratory Status: Respiratory Rate WNL, Airway Patent, O2 Saturation Stable, Supplemental Oxygen - CARDIOVASCULAR CV Status: Pulse Rate WNL, Blood Pressure Stable, Other - GASTROINTESTINAL GI Status: No Symptoms - POST OP HYDRATION Hydration Status: Adequate & Stable
--- NOTE | 2019-02-03 11:20 | PCM48HPAN ---
Post Anesthesia Note - EVALUATION WITHIN 48HRS OF ANESTHETIC Vital Signs in Normal Range: Yes Patient Participated in Evaluation: Yes Respiratory Function Stable: Yes Airway Patent: Yes Cardiovascular Function Stable: Yes Hydration Status Stable: Yes Pain Control Satisfactory: Yes Nausea and Vomiting Control Satisfactory: Yes Mental Status Recovered: Yes Resp Rate: 16
--- NOTE | 2019-02-04 06:48 | OR ---
DATE OF OPERATION: 02/03/2019 SURGEON: Gurdeep Coburn MD PREOPERATIVE DIAGNOSIS: Hematoma of the right scrotum. POSTOPERATIVE DIAGNOSIS: Hematoma of the right scrotum. OPERATION PERFORMED: Drainage and partial bottling procedure where the portion of the hematoma sac was trimmed and turned around the posterior aspect of the testicle. The testicle appeared normal. The hematoma sac was thickened and was trimmed and sent to pathology. ESTIMATED BLOOD LOSS: About 20 mL. ANESTHESIA: Procedure done under general anesthetic. DESCRIPTION OF PROCEDURE: The patient was taken to the operating room, placed in a supine position, connected to the monitoring equipment, and given a general anesthetic. The right testicle having been marked was prepped with Betadine, draped off in a sterile fashion. Transverse incision was made, and the scrotal swelling and large hematoma evacuated. The sac was then from the dartos muscle by sharp dissection, and then a portion of it was turned around after being trimmed posterior portion of the testicle and sutured in place with a running 3-0 Vicryl suture. The other portion of the sac that extended up along the cord was not able to mobilize the testicle enough to swing it around posterior. This was just trimmed and the edge oversewed with a 3-0 Vicryl suture. Bleeding points were controlled with 3-0 Vicryl, suture ligature, and electrocautery. A Rhoda drain was placed in the sac, and the dartos muscle was then closed with running 3-0 Vicryl suture. Sterile dressing placed. The patient tolerated the procedure and sent to recovery room in a stable condition. MMODAL /[id number]
== END 2019-02-03 12:17 | disposition home or self-care (01) ==
LOC: JD.SDS 08:31
PROVIDERS: ATTEND Surgery
DX: S30.22XA Contusion of scrotum and testes, initial encounter (principal); N49.2 Inflammatory disorders of scrotum; N50.89 Other specified disorders of the male genital organs; B19.20 Unspecified viral hepatitis C without hepatic coma; I10 Essential (primary) hypertension; Z98.890 Other specified postprocedural states; Z79.82 Long term (current) use of aspirin
CPT/HCPCS: 54700; J0690; J1170; J1885; J2250; J2405; J2704; J3010; J7120; 00920; J2001; J3490

== ENCOUNTER 2019-02-05 14:54 | Observation (INO) | payer MEDICAID ==
[2019-02-05] MEDS ORDERED: Ketorolac 30 MG/ML SDV IVPUSH PRN (16:16)
[2019-02-05] MEDS ORDERED: Acetaminophen/HYDROcodone 325-5 MG Tab PO PRN (16:28)
[2019-02-05] MEDS: Lactated Ringers 1,000 ML IV SCH (16:59)
[2019-02-05] MEDS: cefOXitin 1 GM in Premix Bag 1 BAG IV SCH ×2 (17:04→22:40)
[2019-02-06] MEDS: Lactated Ringers 1,000 ML IV SCH ×2 (03:26→15:43)
[2019-02-06] MEDS: cefOXitin 1 GM in Premix Bag 1 BAG IV SCH ×4 (05:25→23:34)
[2019-02-06] MEDS ORDERED: Ketorolac 15 MG/ML SDV IVPUSH PRN (07:09)
[2019-02-06] MEDS: Multivitamins,Therapeutic Tab PO SCH (08:07)
[2019-02-06] MEDS: Aspirin 81 MG Tab.EC PO SCH (08:08)
--- NOTE | 2019-02-06 09:36 | PCM.PN ---
- General Info Date of Service: 02/06/19 Functional Status: Reports: Pain Controlled - Review of Systems General: Reports: Appetite (improved ) 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: Reports: No Symptoms - Patient Data Vitals - Most Recent: Last Vital Signs Temp 97.5 F 02/06/19 08:10 Pulse 91 02/06/19 08:10 Resp 14 02/06/19 08:10 BP 117/85 02/06/19 08:10 Pulse Ox 94 L 02/06/19 08:10 Weight - Most Recent: 72.303 kg I&O - Last 24 Hours: Intake & Output 02/05/19 02/06/19 02/06/19 23:59 07:59 15:59 Intake Total 640 600 Output Total 475 Balance 640 125 Lab Results Last 24 Hours: Laboratory Results - last 24 hr 02/05/19 02/05/19 02/05/19 Range/Units 15:35 15:35 15:35 WBC 10.99 H (4.23-9.07) K/mm3 RBC 4.52 L (4.63-6.08) M/mm3 Hgb 14.6 (13.7-17.5) gm/L Hct 41.5 (40.1-51.0) % MCV 91.8 (79.0-92.2) fl MCH 32.3 H (25.7-32.2) pg MCHC 35.2 (32.2-35.5) g/dl RDW Std Deviation 43.9 (35.1-43.9) fL Plt Count 221 (163-337) K/mm3 MPV 9.9 (9.4-12.3) fl Neut % (Auto) 45.2 (34.0-67.9) % Lymph % (Auto) 43.8 (21.8-53.1) % Divide % (Auto) 10.0 (5.3-12.2) % Eos % (Auto) 0.6 L (0.8-7.0) Baso % (Auto) 0.3 (0.1-1.2) % Neut # (Auto) 4.97 (1.78-5.38) K/mm3 Lymph # (Auto) 4.81 H (1.32-3.57) K/mm3 Divide # (Auto) 1.10 H (0.30-0.82) K/mm3 Eos # (Auto) 0.07 (0.04-0.54) K/mm3 Baso # (Auto) 0.03 (0.01-0.08) K/mm3 Sodium 135 L (136-145) mEq/L Potassium 3.9 (3.5-5.1) mEq/L Chloride 101 (98-107) mEq/L Carbon Dioxide 23 (21-32) mEq/L Anion Gap 14.9 (5-15) BUN 16 (7-18) mg/dL Creatinine 0.8 (0.7-1.3) mg/dL Est Cr Clr Drug Dosing 100.36 mL/min Estimated GFR (MDRD) > 60 (>60) mL/min BUN/Creatinine Ratio 20.0 H (14-18) Glucose 128 H (74-106) mg/dL Lactic Acid 0.9 (0.4-2.0) mmol/L Calcium 8.7 (8.5-10.1) mg/dL Total Bilirubin 1.0 (0.2-1.0) mg/dL AST 25 (15-37) U/L ALT 34 (16-63) U/L Alkaline Phosphatase 66 (46-116) U/L Total Protein 8.1 (6.4-8.2) g/dl Albumin 3.3 L (3.4-5.0) g/dl Globulin 4.8 gm/dL Albumin/Globulin Ratio 0.7 L (1-2) Med Orders - Current: Current Medications Hydrocodone Bitart/Acetaminophen ([place] 325-5 Mg) 1 tab PO Q6H PRN PRN Reason: Pain Last Admin: 02/06/19 08:06 Dose: 1 tab Aspirin (Halfprin) 81 mg PO DAILY [facility] Last Admin: 02/06/19 08:08 Dose: 81 mg Cefoxitin Sodium 1 gm/ Premix 50 mls @ 100 mls/hr IV Q6H [facility] Last Admin: 02/06/19 05:25 Dose: 100 mls/hr Lactated Ringer's (Ringers, Lactated) 1,000 mls @ 100 mls/hr IV ASDIRECTED [facility] Last Admin: 02/06/19 03:26 Dose: 100 mls/hr Ketorolac Tromethamine (Toradol) 30 mg IVPUSH Q6H PRN PRN Reason: Pain Multivitamins (Thera) 1 each PO DAILY [facility] Last Admin: 02/06/19 08:07 Dose: 1 each Discontinued Medications Ketorolac Tromethamine (Toradol) 30 mg IVPUSH Q6H PRN PRN Reason: Pain Last Admin: 02/05/19 17:02 Dose: 30 mg - Exam (Male) Exam: Other (surgical site rt scrotum healing without problem ) - Problem List Review Problem List Initiated/Reviewed/Updated: Yes - My Orders Last 24 Hours: My Active Orders 02/05/19 15:16 Patient Status [ADT] Routine 02/05/19 15:19 Ambulate [RC] Q8H 02/05/19 15:20 Antiembolic Devices [RC] BID Turn, Cough, Deep Breathe [RC] .PRN SCD [Sequential Compression Device] [OM.PC] Routine 02/05/19 15:22 Code Status [Resuscitation Status] Routine 02/05/19 15:53 CULTURE WOUND [RM] Routine 02/05/19 16:15 Lactated Ringers [Ringers, Lactated] 1,000 ml IV ASDIRECTED 02/05/19 16:28 Acetaminophen/HYDROcodone [[place] 325-5 MG] 1 tab PO Q6H PRN 02/05/19 17:00 cefOXitin [Mefoxin in Dextrose,Iso-Osm 1 GM/50 ML] 1 gm Premix Bag 1 bag IV Q6H 02/06/19 07:09 Ketorolac [Toradol] 30 mg IVPUSH Q6H PRN 02/06/19 09:00 Aspirin [Halfprin] 81 mg PO DAILY Multivitamins,Therapeutic [Thera] 1 each PO DAILY 02/06/19 Breakfast Regular Diet [DIET] - Plan Plan:: pt improved pain controlled surgical site healing ass improved plan suspect hydrocodone is responsible for his poor apatite DC [place], use Tylenol for pain
[2019-02-06] MEDS ORDERED: Acetaminophen 325 MG Tab PO PRN (10:28)
[2019-02-07] MEDS: cefOXitin 1 GM in Premix Bag 1 BAG IV SCH (04:38)
[2019-02-07] MEDS: Lactated Ringers 1,000 ML IV SCH (04:48)
[2019-02-07] MEDS ORDERED: Lactated Ringers 1,000 ML IV SCH (05:00)
[2019-02-07] MEDS: Aspirin 81 MG Tab.EC PO SCH (08:59)
[2019-02-07] MEDS: Multivitamins,Therapeutic Tab PO SCH (08:59)
--- NOTE | 2019-02-07 09:28 | PCM.PN ---
- General Info Date of Service: 02/07/19 - Patient Data Vitals - Most Recent: Last Vital Signs Temp 97.5 F 02/07/19 08:58 Pulse 76 02/07/19 08:58 Resp 16 02/07/19 08:58 BP 128/83 02/07/19 08:58 Pulse Ox 99 02/07/19 08:58 Weight - Most Recent: 73.573 kg I&O - Last 24 Hours: Intake & Output 02/06/19 02/07/19 02/07/19 23:59 07:59 15:59 Intake Total 180 1671 Output Total 1700 Balance 180 -29 Med Orders - Current: Current Medications Acetaminophen (Tylenol) 650 mg PO Q6H PRN PRN Reason: Pain Aspirin (Halfprin) 81 mg PO DAILY [facility] Last Admin: 02/07/19 08:59 Dose: 81 mg Multivitamins (Thera) 1 each PO DAILY [facility] Last Admin: 02/07/19 08:59 Dose: 1 each Discontinued Medications Hydrocodone Bitart/Acetaminophen ([place] 325-5 Mg) 1 tab PO Q6H PRN PRN Reason: Pain Last Admin: 02/06/19 08:06 Dose: 1 tab Cefoxitin Sodium 1 gm/ Premix 50 mls @ 100 mls/hr IV Q6H [facility] Last Admin: 02/07/19 04:38 Dose: 100 mls/hr Lactated Ringer's (Ringers, Lactated) 1,000 mls @ 75 mls/hr IV ASDIRECTED [facility] Last Infusion: 02/07/19 01:43 Dose: Infused Lactated Ringer's (Ringers, Lactated) 1,000 mls @ 75 mls/hr IV ASDIRECTED [facility] Last Admin: 02/07/19 04:57 Dose: 75 mls/hr Ketorolac Tromethamine (Toradol) 30 mg IVPUSH Q6H PRN PRN Reason: Pain Last Admin: 02/05/19 17:02 Dose: 30 mg Ketorolac Tromethamine (Toradol) 30 mg IVPUSH Q6H PRN PRN Reason: Pain - Problem List Review Problem List Initiated/Reviewed/Updated: Yes - My Orders Last 24 Hours: My Active Orders 02/06/19 09:00 Aspirin [Halfprin] 81 mg PO DAILY Multivitamins,Therapeutic [Thera] 1 each PO DAILY 02/06/19 10:28 Acetaminophen [Tylenol] 650 mg PO Q6H PRN - Plan Plan:: pt improved pain controlled surgical site healing ass improved plan suspect hydrocodone is responsible for his poor apatite DC [place], use Tylenol for pain pt doing well discharged dictated
--- NOTE | 2019-02-09 14:43 | DISCH ---
RHOADMISSION DATE: 02/05/2019 DISCHARGE DATE: 02/07/2019 HISTORY OF PRESENT ILLNESS: This is a 58-year-old male, who underwent last Saturday resection of atraumatic hydrocele. The patient was seen in followup postop and was having difficulty eating and drinking and was in considerable pain. It was felt that he was having difficulty with thriving. PHYSICAL EXAMINATION: GENERAL: Showed an alert, cooperative male. VITAL SIGNS: Temperature 99. Vital signs were stable. EYES: Unremarkable. NECK: Supple. LUNGS: Clear. HEART: Tones regular rate. ABDOMEN: Soft. SCROTAL: Showed healing wound without any inflammation. The patient was admitted for observation, IV fluids and pain medication. He was given antibiotics empirically with culture of the scrotal fluid. His scrotal drain was removed. HOSPITAL COURSE: The patient on IV fluids and Toradol and [place] for pain, improved and his appetite returned. Examination of the surgical site shows healing without problem. The vital signs remained stable. It was elected to stop his [place] and use Tylenol for pain and the patient was observed and he continued to improve and had minimal discomfort. Following day, the IV was discontinued. He was discharged on oral pain medication of Tylenol, his aspirin and vitamins and empiric antibiotics of Septra 1 p.o. b.i.d. and to follow up in the clinic. DISCHARGE DIAGNOSES: 1. Failure to thrive status post hydrocelectomy. 2. Excessive pain postop. CONDITION ON DISCHARGE: Improved. DIET: He was discharged on a regular diet. ACTIVITY: No work. DISCHARGE MEDICATIONS: As described above. FINAL DIAGNOSIS: FOLLOW-UP: KARAN /[id number]
== END 2019-02-07 11:08 | disposition home or self-care (01) ==
LOC: JD.MS 15:09
PROVIDERS: ADMIT Surgery; ATTEND Surgery
DX: R62.7 Adult failure to thrive (principal); G89.18 Other acute postprocedural pain; I48.91 Unspecified atrial fibrillation; I10 Essential (primary) hypertension; F17.210 Nicotine dependence, cigarettes, uncomplicated; Z79.82 Long term (current) use of aspirin; Z79.899 Other long term (current) drug therapy
CPT/HCPCS: 36415; 80053; 83605; 85025; 87070; A9270; J0694; J1885; J7120; 96361; 96365; 96366; 96375; 96376; G0378

== ENCOUNTER 2019-08-17 09:39 | Emergency (ER) | payer MEDICAID ==
[2019-08-17] MEDS ORDERED: Acetaminophen/HYDROcodone 325-5 MG Tab PO ONE (10:23)
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
--- NOTE | 2019-08-17 12:34 | CR ---
Left foot: Four views of the left foot were obtained. Comparison: No prior foot exam is available. Soft tissue swelling is noted around the ankle. Lateral malleolus fracture is again noted. Joint spaces within the foot are preserved. No additional fracture or other bony abnormality is appreciated. Mild vascular calcification is present. Impression: 1. Lateral malleolus fracture with soft tissue swelling. 2. Minimal vascular calcification. 3. No other acute finding is seen on left foot study. Diagnostic code #3 This report was dictated in [place] Standard Time
--- NOTE | 2019-08-17 12:34 | CR ---
Left ankle: Four views of the left ankle were obtained. Comparison: No previous ankle exam is available. Minimally displaced lateral malleolus fracture is seen. Ankle mortise appears to be symmetric. Soft tissue swelling is noted. No additional fracture or other bony abnormality is appreciated. Impression: 1. Lateral malleolus fracture as noted above. Soft tissue swelling. 2. Left ankle study is otherwise unremarkable. Diagnostic code #3 This report was dictated in [place] Standard Time
== END 2019-08-17 11:13 | disposition home or self-care (01) ==
LOC: JD.ED 09:39
DX: S82.65XA Nondisplaced fracture of lateral malleolus of left fibula, initial encounter for closed fracture (principal); F17.210 Nicotine dependence, cigarettes, uncomplicated; Z79.82 Long term (current) use of aspirin; Z79.899 Other long term (current) drug therapy; W50.0XXA Accidental hit or strike by another person, initial encounter; Y92.511 Restaurant or cafe as the place of occurrence of the external cause
CPT/HCPCS: 73610; 73630; A9270; 99283

== ENCOUNTER 2020-09-20 17:01 | Emergency (ER) | payer MEDICAID ==
--- NOTE | 2020-09-20 17:33 | EDM.PDOC ---
ED HPI GENERAL MEDICAL PROBLEM - General Chief Complaint: ENT Problem Stated Complaint: SWOLLEN JAW Time Seen by Provider: 09/20/20 17:08 Source of Information: Reports: Patient History Limitations: Reports: No Limitations - History of Present Illness INITIAL COMMENTS - FREE TEXT/NARRATIVE: The patient presents with left lower jaw dental pain. This started about a week ago. He has swelling and pain. He has no fever or chills. He also has some right flank numbness and pain. He has been traveling a lot the past 3 weeks. He started with severe pain in his right flank. Now he has some numbness to that area. The pain is better. He has no numbness or weakness to his right leg. Onset: Gradual Duration: Week(s): (1) Location: Reports: Other (Left lower dental pain) Severity: Severe Improves with: Reports: None Worsens with: Reports: None Associated Symptoms: Reports: No Other Symptoms Left Jaw Pain Score (Numeric/FACES): 10 - Related Data Allergies Allergy/AdvReac Type Severity Reaction Status Date / Time No Known Allergies Allergy Verified 09/20/20 17:12 Home Meds: Home Meds Hydrocodone/Acetaminophen [Hydrocodone-Acetamin 5-325 mg] 1 - 2 each PO Q6HR PRN #20 tablet 09/20/20 [Rx] Penicillin V Potassium 500 mg PO Q6HR #40 tab 09/20/20 [Rx] Past Medical History HEENT History: Reports: None Cardiovascular History: Reports: Afib, Hypertension Respiratory History: Reports: None Gastrointestinal History: Reports: None Other Gastrointestinal History: Inguinal hernia 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 History: Reports: None 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 History: 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 Musculoskeletal History: Other Musculoskeletal History: knots in back "feels like a broken rib" Neurological History: Reports: None Psychiatric History: Reports: Addiction Other Psychiatric History: H&P states substance abuse but patient denies Endocrine/Metabolic History: Reports: None Hematologic History: Reports: None Immunologic History: Reports: Other (See Below) Other Immunologic History: clinic note states Hepatitis C, but patient states he has never been tested for it Oncologic (Cancer) History: Reports: None Dermatologic History: Reports: None - Infectious Disease History Infectious Disease History: Reports: Hepatitis C Other Infectious Disease History: H&P states Hepatitis C, however, patient states that he has never been tested for it. - Past Surgical History HEENT Surgical History: Reports: Tonsillectomy GI Surgical History: Reports: Hernia, Inguinal Social & Family History - Family History Family Medical History: No Pertinent Family History - Tobacco Use Tobacco Use Status *Q: Current Every Day Tobacco User Years of Tobacco use: 42 Packs/Tins Daily: 0.5 - Caffeine Use Caffeine Use: Reports: Coffee - Recreational Drug Use Recreational Drug Use: No ED ROS ENT - Review of Systems Review Of Systems: See Below Constitutional: Reports: No Symptoms HEENT: Reports: Dental Pain Respiratory: Reports: No Symptoms Cardiovascular: Reports: No Symptoms Endocrine: Reports: No Symptoms GI/Abdominal: Reports: No Symptoms : Reports: No Symptoms Musculoskeletal: Reports: No Symptoms ED EXAM, ENT - Physical Exam Exam: See Below Exam Limited By: No Limitations General Appearance: Alert, No Apparent Distress Ears: Normal External Exam Nose: Normal Inspection Mouth/Throat: Dental Pain, Other (Left lower gums have erythema and edema and there is multiple broken teeth and cavities) Course - Vital Signs Last Recorded V/S: Last Vital Signs Temp 98.7 F 09/20/20 17:09 Pulse 101 H 09/20/20 17:09 Resp 16 09/20/20 17:09 BP 157/97 H 09/20/20 17:09 Pulse Ox 96 09/20/20 17:09 Departure - Departure Time of Disposition: 17:40 Disposition: Home, Self-Care 01 Condition: Good Clinical Impression: Dental abscess, Dental caries, Pain, dental - Discharge Information *PRESCRIPTION DRUG MONITORING PROGRAM REVIEWED*: Not Applicable *COPY OF PRESCRIPTION DRUG MONITORING REPORT IN PATIENT TORRES: Not Applicable Prescriptions: Hydrocodone/Acetaminophen [Hydrocodone-Acetamin 5-325 mg] 1 - 2 each PO Q6HR PRN #20 tablet PRN Reason: Pain Penicillin V Potassium 500 mg PO Q6HR #40 tab Referrals: PCP,None [Primary Care Provider] - Additional Instructions: Take the penicillin 4 times per day for 10 days. Take tylenol or motrin as needed for pain. If that does not help, try the hydrocodone. Follow up with a dentist. Sepsis Event Note (ED) - Evaluation Sepsis Screening Result: No Definite Risk - Focused Exam Vital Signs: Vital Signs Temp Pulse Resp BP Pulse Ox 09/20/20 17:09 98.7 F 101 H 16 157/97 H 96
== END 2020-09-20 17:45 | disposition home or self-care (01) ==
LOC: JD.ED 17:01
DX: K04.7 Periapical abscess without sinus (principal); K02.9 Dental caries, unspecified; I48.91 Unspecified atrial fibrillation; I10 Essential (primary) hypertension; Z72.0 Tobacco use
CPT/HCPCS: 99282; 99283

== ENCOUNTER 2022-03-21 20:06 | Emergency (ER) | payer SELFPAY ==
[2022-03-21] MEDS ORDERED: Bupivacaine 0.5% 10 ML SDV INJECT ONE (21:22)
[2022-03-21] MEDS ORDERED: Lidocaine 1% with EPINEPHrine 1:100,000 10 ML MDV INJECT ONE (21:22)
[2022-03-21] MEDS ORDERED: Diphtheria,Pertussis(Acell),Tetanus Vaccine 0.5 ML Syringe IM ONE (21:24)
[2022-03-21] MEDS ORDERED: Lidocaine 1% with EPINEPHrine 1:100,000 20 ML MDV ONE (21:33)
[2022-03-21] MEDS ORDERED: Lidocaine 1% with EPINEPHrine 1:100,000 20 ML MDV INJECT ONE (21:49)
[2022-03-21] MEDS ORDERED: Lidocaine 1% 10 ML MDV ONE (21:56)
[2022-03-21] MEDS ORDERED: Lidocaine 1% 10 ML MDV INJECT ONE (22:09)
== END 2022-03-21 22:24 | disposition home or self-care (01) ==
LOC: JD.ED 20:06
DX: S61.412A Laceration without foreign body of left hand, initial encounter (principal); I48.91 Unspecified atrial fibrillation; I10 Essential (primary) hypertension; Z23 Encounter for immunization; W26.0XXA Contact with knife, initial encounter
CPT/HCPCS: 12001; 90715; 99282; J3490

== ENCOUNTER 2022-07-30 19:40 | Emergency (ER) | payer SELFPAY | END 2022-07-30 22:00 | disposition left against medical advice (07) | LOC: JD.ED 19:40 | DX: Z53.21 Procedure and treatment not carried out due to patient leaving prior to being seen by health care provider (principal) ==

== ENCOUNTER 2022-08-01 14:26 | Emergency (ER) | payer SELFPAY ==
[2022-08-01] MEDS ORDERED: Sodium Chloride 0.9% 10 ML Syringe FLUSH PRN (15:29)
[2022-08-01] MEDS ORDERED: HYDROmorphone 1 MG/ML Syringe IVPUSH ONE (15:30)
== END 2022-08-01 18:00 | disposition home or self-care (01) ==
LOC: JD.ED 14:26
DX: S42.022A Displaced fracture of shaft of left clavicle, initial encounter for closed fracture (principal); I48.91 Unspecified atrial fibrillation; I10 Essential (primary) hypertension; F17.200 Nicotine dependence, unspecified, uncomplicated; Z79.899 Other long term (current) drug therapy; V00.311A Fall from snowboard, initial encounter; Y93.23 Activity, snow (alpine) (downhill) skiing, snowboarding, sledding, tobogganing and snow tubing
CPT/HCPCS: 36415; 71250; 80053; 85025; 93005; 96374; 99284; J1170; J3490

== ENCOUNTER 2024-06-23 13:22 | Inpatient (IN) | payer MEDICAID, MEDICARE ==
[2024-06-23] MEDS ORDERED: Sodium Chloride 0.9% 100 ML IV SCH (13:45)
[2024-06-23] MEDS: Sodium Chloride 0.9% 10 ML Syringe FLUSH PRN (13:53)
[2024-06-23] MEDS: Sodium Chloride 0.9% 10 ML Syringe FLUSH ONE (13:53)
[2024-06-23] MEDS: Iopamidol 755 Mg/ML 100 ML Bottle IVPUSH ONE (13:53)
[2024-06-23 14:10] LABS: BASOPHILS ABSOLUTE AUTO 0.1 K/mm3 (0.0-0.2); BASOPHILS PERCENT AUTO 0.9 % (0.0-1.0); EOSINOPHILS ABSOLUTE AUTO 0.1 K/mm3 (0.0-0.4); EOSINOPHILS PERCENT AUTO 0.7 % (0.0-6.0); HEMATOCRIT 46.2 % (42.0-52.0); HEMOGLOBIN 16.3 gm/dl (14.0-18.0); IMMATURE GRAN ABSOLUTE AUTO 0.02 K/mm3 (0.00-0.05); IMMATURE GRAN PERCENT AUTO 0.2 % (0.0-0.4); MEAN CORPUSCULAR HEMOGLOBIN 33.3 pg (28.0-32.0); MEAN CORPUSCULAR HGB CONC 35.3 g/dl (32.0-36.0); MEAN CORPUSCULAR VOLUME 94.5 fl (83.0-99.0); MEAN PLATELET VOLUME 10.1 fl (9.4-12.4); MONOCYTES ABSOLUTE AUTO 0.6 K/mm3 (0.0-0.8); MONOCYTES PERCENT AUTO 6.5 % (0.0-8.0); NEUTROPHILS ABSOLUTE AUTO 2.2 K/mm3 (1.8-7.7); NEUTROPHILS PERCENT AUTO 24.7 % (41.0-71.0); PLATELET COUNT,PLT 164 K/mm3 (150-400); RED BLOOD CELL COUNT 4.89 M/mm3 (4.52-5.90); WHITE BLOOD CELL COUNT,WBC 8.98 K/mm3 (3.9-11.3)
[2024-06-23 14:27] LABS: INR 1.01; PROTHROMBIN TIME 10.7 SECONDS (9.7-12.0)
[2024-06-23 14:28] LABS: PTT,PARTIAL THROMBOPLSTIN TIME 26.9 SECONDS (21.7-31.4)
[2024-06-23 14:31] LABS: A/G RATIO 0.9 (1-2); ALANINE AMINOTRANSFERASE,ALT 65 U/L (16-63); ALBUMIN 3.5 g/dl (3.4-5.0); ALKALINE PHOSPHATASE 58 U/L (46-116); ANION GAP 13.1 (5-15); ASPARTATE AMNIOTRANSFERASE,AST 45 U/L (15-37); BILIRUBIN TOTAL 0.8 mg/dL (0.2-1.0); BLOOD UREA NITROGEN,BUN 12 mg/dL (7-18); CALCIUM 8.6 mg/dL (8.5-10.1); CARBON DIOXIDE,CO2 26 mEq/L (21-32); CHLORIDE,CL 102 mEq/L (98-107); CREATININE 0.8 mg/dL (0.7-1.3); ESTIMATED GFR 98 mL/min (>60); PROTEIN TOTAL,TP 7.6 g/dl (6.4-8.2); SODIUM,NA 137 mEq/L (136-145); TROPONIN I HIGH SENSITIVITY 10 pg/mL (<=76)
[2024-06-23 14:47] LABS: GLUCOSE RANDOM 126 mg/dL (70-99); POTASSIUM,K 4.1 mEq/L (3.5-5.1)
[2024-06-23] MEDS: Aspirin 81 MG Tab.EC PO ONE (19:56)
[2024-06-23] MEDS: Acetaminophen 325 MG Tab PO PRN (19:56)
[2024-06-23] MEDS: Clopidogrel 75 MG Tab PO ONE (19:57)
[2024-06-23] MEDS: Nicotine 21 MG/24 Hr Patch TRDERM SCH (22:05)
[2024-06-24] MEDS ORDERED: Docusate Sodium 100 MG Cap PO PRN (08:01)
[2024-06-24] MEDS ORDERED: Ondansetron 4 MG/2 ML SDV IV PRN (08:01)
[2024-06-24] MEDS ORDERED: Polyethylene Glycol 3350 Powder 17 GM Packet PO PRN (08:01)
[2024-06-24 10:39] LABS: CHOLESTEROL HDL 76 mg/dL (40-59); CHOLESTEROL LDL DIRECT 89 mg/dL (<100); CHOLESTEROL TOTAL 192 mg/dL (<200); HEMOGLOBIN A1C 5.3 %; TRIGLYCERIDES 264 mg/dL (<150)
[2024-06-24] MEDS ORDERED: atorvaSTATin 40 MG Tab PO SCH (21:00)
[2024-06-25] MEDS ORDERED: Apixaban 5 MG Tab PO SCH (09:00)
== END 2024-06-24 16:12 | disposition home or self-care (01) | DRG 65 ==
LOC: JD.ED 13:22 → JD.MS 19:29
PROVIDERS: ADMIT Internal Medicine; ATTEND Internal Medicine
DX: I63.9 Cerebral infarction, unspecified (principal); G81.94 Hemiplegia, unspecified affecting left nondominant side; I48.91 Unspecified atrial fibrillation; R29.702 NIHSS score 2; I10 Essential (primary) hypertension; F17.200 Nicotine dependence, unspecified, uncomplicated; Z87.19 Personal history of other diseases of the digestive system; Z90.89 Acquired absence of other organs; Z98.890 Other specified postprocedural states
CPT/HCPCS: 36415; 70450; 70450-26; 70496; 70496-26; 70498; 70498-26; 70551; 70551-26; 80053; 80061; 82947; 83036; 84484; 85025; 85610; 85730; 93005; 93010; 93306; 97110-GP; 97116-GP; 97161-GP; 97530-GP; 99285; A9270-GY; J3490; Q9967